=== PATIENT | female | born 1965 | race Caucasian/White ===

== ENCOUNTER 2017-05-18 13:35 | Emergency (ER) | payer SELFPAY ==
[2017-05-18 14:20] LABS: ABS Basophils 0 10^3/ul (0-0.2); ABS Eosinophils 0.2 10^3/ul (0-0.6); ABS Lymphocytes 3.2 10^3/ul (1.0-4.8); ABS Monocytes 0.5 10^3/ul (0-0.8); ABS Neutrophils 7.5 10^3/ul (1.5-7.7); ABS Nucleated RBC 0 10^3/ul; Eosinophil % 1.7 % (0-6); Hematocrit 38 % (35-47); Hemoglobin 12.9 g/dl (12.0-16.0); Lymphocyte % 28.3 % (25-47); Mean Corpuscular HGB Conc 34 g/dl (31-36); Mean Corpuscular Hemoglobin 29 pg (27-31); Mean Corpuscular Volume 85 fL (80-97); Mean Platelet Volume 8 um3 (7.4-10.4); Nucleated Red Blood Cells % 0; Platelet Count 513 10^3/ul (150-450); Red Blood Count 4.48 10^6/ul (4.0-5.4); Red Cell Distribution Width 18 % (10.5-15); White Blood Count 11.4 10^3/ul (3.5-10.8)
[2017-05-18 15:09] LABS: Urine Appearance Cloudy; Urine Blood Negative (Negative); Urine Color Yellow; Urine Ketones Trace (Negative); Urine Protein Negative (Negative); Urine Specific Gravity 1.018 (1.010-1.030); Urine Urobilinogen Negative (Negative)
[2017-05-18] MEDS ORDERED: LORazepam TAB(*) 1 MG PO ONE (16:55)
[2017-05-18] MEDS ORDERED: Gabapentin CAP(*) 300 MG PO ONE (21:08)
[2017-05-18] MEDS ORDERED: QUEtiapine TAB* 100 MG PO ONE (21:08)
--- NOTE | 2017-05-18 21:16 | ED ---
Pooja Lancaster Thomas, scribed for Aguilar Sandoval MD on 05/18/17 at 1412 . Psychiatric Complaint - HPI Summary HPI Summary: The patient is a 51 year old female presenting to the emergency department with thoughts of self-harm. The patient reports that she has been unable to refill any of her medications due to a recent move and has not taken them for several weeks. - History Of Current Complaint Chief Complaint: EDMentalHealth Time Seen by Provider: 05/18/17 13:50 Hx Obtained From: Patient Onset/Duration: Lasting Weeks Timing: Intermittent Episode Lasting Severity Currently: Moderate Character: Depressed Aggravating Factor(s): Other - Recent move Alleviating Factor(s): Nothing Associated Signs And Symptoms: Positive: Negative Related History: Positive For: Prior Psychiatric Issues Has Suicidal: Reports: Thoughts Has Homicidal: Denies: Thoughts Recent Stressor(s): Recent move PMH/Surg Hx/FS Hx/Imm Hx Sensory History: Denies: Hx Legally Blind EENT History: Denies: Hx Deafness Infectious Disease History: No Infectious Disease History: Denies: Traveled Outside the [place] in Last 30 Days - Family History Known Family History: Positive: Other - Depression - Social History Alcohol Use: None Hx Substance Use: Yes Substance Use Type: Reports: Marijuana Hx Tobacco Use: Yes Smoking Status (MU): Current Every Day Smoker Review of Systems Negative: Fever Negative: Epistaxis Psychological: Other - thoughts of self-harm Positive: Depressed All Other Systems Reviewed And Are Negative: Yes Physical Exam - Summary Physical Exam Summary: Appearance: The patient is well-nourished in no acute distress and in no acute pain. Skin: The skin is warm and dry and skin color reflects adequate perfusion. HEENT: ~The head is normocephalic and atraumatic. The pupils are equal and reactive. The conjunctivae are clear and without drainage. ~Nares are patent and without drainage. ~Mouth reveals moist mucous membranes and the throat is without erythema and exudate. ~The external ears are intact. The ear canals are patent and without drainage. The tympanic membranes are intact. Neck: the neck is supple with full range of motion and non-tender. There are no carotid bruits. ~There is no neck vein distension. Respiratory: Chest is non-tender. ~Lungs are clear to auscultation and breath sounds are symmetrical and equal. Cardiovascular: Heart is regular rate and rhythm. ~There is no murmur or rub auscultated. ~~There is no peripheral edema and pulses are symmetrical and equal. Abdomen: The abdomen is soft and non-tender. ~There are normal bowel sounds heard in all four quadrants and there is no organomegaly palpated. Musculoskeletal: There is no back tenderness noted. ~Extremities are non-tender with full range of motion. ~There is good capillary refill. ~There is no peripheral edema or calf tenderness elicited. Neurological: Patient is alert and oriented to person, place and time. ~The patient has symmetrical motor strength in all four extremities. ~Cranial nerves are grossly intact. Deep tendon reflexes are symmetrical and equal in all four extremities. Psychiatric: The patient has an appropriate affect. The patient exhibits anxiety and depression with thoughts of self-harm. Triage Information Reviewed: Yes Vital Signs On Initial Exam: Initial Vitals Temp Pulse Resp BP Pulse Ox 95 F 87 16 160/118 98 05/18/17 13:39 05/18/17 13:39 05/18/17 13:39 05/18/17 13:39 05/18/17 13:39 Vital Signs Reviewed: Yes Diagnostics - Vital Signs Vital Signs Temp Pulse Resp BP Pulse Ox 05/18/17 13:39 95 F 87 16 160/118 98 - Laboratory Lab Results: Lab Results 05/18/17 05/18/17 05/18/17 Range/Units 14:10 14:10 14:58 WBC 11.4 H (3.5-10.8) 10^3/ul RBC 4.48 (4.0-5.4) 10^6/ul Hgb 12.9 (12.0-16.0) g/dl Hct 38 (35-47) % MCV 85 (80-97) fL MCH 29 (27-31) pg MCHC 34 (31-36) g/dl RDW 18 H (10.5-15) % Plt Count 513 H (150-450) 10^3/ul MPV 8 (7.4-10.4) um3 Neut % (Auto) 65.4 (38-83) % Lymph % (Auto) 28.3 (25-47) % [place]aca % (Auto) 4.4 (1-9) % Eos % (Auto) 1.7 (0-6) % Baso % (Auto) 0.2 (0-2) % Absolute Neuts (auto) 7.5 (1.5-7.7) 10^3/ul Absolute Lymphs (auto) 3.2 (1.0-4.8) 10^3/ul Absolute Monos (auto) 0.5 (0-0.8) 10^3/ul Absolute Eos (auto) 0.2 (0-0.6) 10^3/ul Absolute Basos (auto) 0 (0-0.2) 10^3/ul Absolute Nucleated RBC 0 10^3/ul Nucleated RBC % 0 Sodium 133 (133-145) mmol/L Potassium 4.0 (3.5-5.0) mmol/L Chloride 103 (101-111) mmol/L Carbon Dioxide 23 (22-32) mmol/L Anion Gap 7 (2-11) mmol/L BUN 11 (6-24) mg/dL Creatinine 0.73 (0.51-0.95) mg/dL Est GFR ( Amer) 108.1 (>60) Est GFR (Non-Af Amer) 84.0 (>60) BUN/Creatinine Ratio 15.1 (8-20) Glucose 95 (70-100) mg/dL Calcium 9.7 (8.6-10.3) mg/dL Total Bilirubin 0.20 (0.2-1.0) mg/dL AST 10 L (13-39) U/L ALT 13 (7-52) U/L Alkaline Phosphatase 57 (34-104) U/L Total Protein 7.9 (6.4-8.9) g/dL Albumin 4.1 (3.2-5.2) g/dL Globulin 3.8 (2-4) g/dL Albumin/Globulin Ratio 1.1 (1-3) TSH 3.00 (0.34-5.60) mcIU/mL Urine Color Urine Appearance Urine pH (5-9) Ur Specific [place] (1.010-1.030) Urine Protein (Negative) Urine Ketones (Negative) Urine Blood (Negative) Urine Nitrate (Negative) Urine Bilirubin (Negative) Urine Urobilinogen (Negative) Ur Leukocyte Esterase (Negative) Urine WBC (Auto) (Absent) Urine RBC (Auto) (Absent) Ur Squamous Epith Cells (Absent) Urine Bacteria (Absent) Hyaline Casts (Absent) Urine Glucose (Negative) Salicylates < 2.50 (<30) mg/dL Urine Opiates Screen None detected (None Detect) Acetaminophen 39 mcg/mL Ur Barbiturates Screen None detected (None Detect) Ur Phencyclidine Scrn None detected (None Detect) Ur Amphetamines Screen None detected (None Detect) U Benzodiazepines Scrn None detected (None Detect) Urine Cocaine Screen None detected (None Detect) U Cannabinoids Screen Presumptive positive H (None Detect) Serum Alcohol < 10 (<10) mg/dL 05/18/17 Range/Units 14:58 WBC (3.5-10.8) 10^3/ul RBC (4.0-5.4) 10^6/ul Hgb (12.0-16.0) g/dl Hct (35-47) % MCV (80-97) fL MCH (27-31) pg MCHC (31-36) g/dl RDW (10.5-15) % Plt Count (150-450) 10^3/ul MPV (7.4-10.4) um3 Neut % (Auto) (38-83) % Lymph % (Auto) (25-47) % [place] % (Auto) (1-9) % Eos % (Auto) (0-6) % Baso % (Auto) (0-2) % Absolute Neuts (auto) (1.5-7.7) 10^3/ul Absolute Lymphs (auto) (1.0-4.8) 10^3/ul Absolute Monos (auto) (0-0.8) 10^3/ul Absolute Eos (auto) (0-0.6) 10^3/ul Absolute Basos (auto) (0-0.2) 10^3/ul Absolute Nucleated RBC 10^3/ul Nucleated RBC % Sodium (133-145) mmol/L Potassium (3.5-5.0) mmol/L Chloride (101-111) mmol/L Carbon Dioxide (22-32) mmol/L Anion Gap (2-11) mmol/L BUN (6-24) mg/dL Creatinine (0.51-0.95) mg/dL Est GFR ( Amer) (>60) Est GFR (Non-Af Amer) (>60) BUN/Creatinine Ratio (8-20) Glucose (70-100) mg/dL Calcium (8.6-10.3) mg/dL Total Bilirubin (0.2-1.0) mg/dL AST (13-39) U/L ALT (7-52) U/L Alkaline Phosphatase (34-104) U/L Total Protein (6.4-8.9) g/dL Albumin (3.2-5.2) g/dL Globulin (2-4) g/dL Albumin/Globulin Ratio (1-3) TSH (0.34-5.60) mcIU/mL Urine Color Yellow Urine Appearance Cloudy Urine pH 5.0 (5-9) Ur Specific [place] 1.018 (1.010-1.030) Urine Protein Negative (Negative) Urine Ketones Trace H (Negative) Urine Blood Negative (Negative) Urine Nitrate Negative (Negative) Urine Bilirubin Negative (Negative) Urine Urobilinogen Negative (Negative) Ur Leukocyte Esterase Trace H (Negative) Urine WBC (Auto) Trace(0-5/hpf) (Absent) Urine RBC (Auto) Trace(0-2/hpf) (Absent) Ur Squamous Epith Cells Present H (Absent) Urine Bacteria 1+ H (Absent) Hyaline Casts Present H (Absent) Urine Glucose Negative (Negative) Salicylates (<30) mg/dL Urine Opiates Screen (None Detect) Acetaminophen mcg/mL Ur Barbiturates Screen (None Detect) Ur Phencyclidine Scrn (None Detect) Ur Amphetamines Screen (None Detect) U Benzodiazepines Scrn (None Detect) Urine Cocaine Screen (None Detect) U Cannabinoids Screen (None Detect) Serum Alcohol (<10) mg/dL Result Diagrams: 05/18/17 14:10 05/18/17 14:10 Lab Statement: Any lab studies that have been ordered have been reviewed, and results considered in the medical decision making process. Course/Dx - Course Course Of Treatment: Ms. Ledbetter presented saying that she was psychotic. She hasn't taken her medications in a week as she has moved here recently and her medicaid did not move with her. She is medically cleared and awaiting a MHE in the Flex Unit. - Differential Dx/Clinical Impression Provider Diagnosis: Psychosis Discharge - Discharge Plan Condition: Stable Disposition: OTHER Discharge Disposition Comment: Signed out to Dr. Rehman at change of shift. The documentation as recorded by the Pooja elliott Thomas accurately reflects the service I personally performed and the decisions made by me, Aguilar Sandoval MD.
[2017-05-18] MEDS ORDERED: Gabapentin CAP(*) 400 MG PO ONE (23:00)
[2017-05-19] MEDS ORDERED: Gabapentin CAP(*) 400 MG PO ONE (05:18)
--- NOTE | 2017-05-19 06:46 | ED ---
Progress - Consult/PCP Time Called: 15:45 Course/Dx - Course Course Of Treatment: Ms. Ledbetter presented saying that she was psychotic. She hasn't taken her medications in a week as she has moved here recently and her medicaid did not move with her. She is medically cleared and awaiting a MHE in the Flex Unit. Pt observed in [facility] Flex unit all night without incident. Signed to oncoming doc at 7am - Diagnoses Provider Diagnoses: Psychosis
[2017-05-19] MEDS ORDERED: Gabapentin CAP(*) 300 MG PO ONE (07:56)
[2017-05-19] MEDS ORDERED: QUEtiapine TAB* 100 MG PO ONE (07:56)
[2017-05-19] MEDS ORDERED: Citalopram TAB* 40 MG PO ONE (07:57)
[2017-05-19] MEDS ORDERED: Nicotine PATCH 7 MG/24 HR* PATCH TRANSDERM ONE (07:58)
--- NOTE | 2017-05-19 08:02 | ED ---
Pooja Lancaster Thomas, scribed for Elmira Starr MD on 05/19/17 at 0732 . Progress - Progress Note Progress Note: The patient is a sign out from Dr. Rehman at shift change, awaiting mental health evaluation. 05/19/17 0740: The patient reports that she doesnt feel right because she needs her medication. She reports suicidal ideation with a plan to cut herself. She has prior suicidal attempts with cutting her wrists. She denies shortness of breath and chest pain. She recently moved from [place] two weeks ago and she is in the process of getting [place] Medicaid. She does not have a counselor. The patient lives at [facility]. She is a current smoker. Course: Patients medications reviewed this visit. High blood pressure noted on admission, currently controlled. Pt will be given daily meds and nicotine patch. Pt will see manager social work this am. Care discussed with Sahil Walker RN this am. 0850: pt states that if she can get her medications, she does not feel suicidal. Meds written for 5 day supply for [facility] inpatient pharmacy. Plan: per Sahil, per Dr. Hough plan is for discharge. Dx: depression, suicidal ideation, HTN in poor control. Condition: stable Course/Dx - Diagnoses Provider Diagnoses: Tobacco abuse disorder, Uncontrolled hypertension, Depression, Suicidal ideation The documentation as recorded by the Pooja elliott Thomas accurately reflects the service I personally performed and the decisions made by me, Elmira Starr MD.
[2017-05-19 08:36] VITALS: BP 155/70
[2017-05-19] MEDS ORDERED: busPIRone TAB* 10 MG PO SCH (09:00)
== END 2017-05-19 11:15 | disposition home or self-care (01) ==
LOC: ED 13:35
DX: F29 Unspecified psychosis not due to a substance or known physiological condition (principal); F32.9 Major depressive disorder, single episode, unspecified; F17.210 Nicotine dependence, cigarettes, uncomplicated
CPT/HCPCS: 36415; 80053; 80307; 80320; 80329; 81003; 81015; 84443; 85025; 87086; 99283; A9270-GY; G0480